=== PATIENT | female | born 1970 | race Caucasian/White ===

== ENCOUNTER → 2017-01-25 | Outpatient (CLI) | payer OTHER ==
[~2017-01-25] VITALS: Ht 170.2 cm; Wt 89.8 kg
[~2017-01-25] MED LIST: IBUP200C PO; IMIT50TA PO; LIDOCAINE 2% INJ 100 MG/5 ML SDV (FOR ANES.) As Ordered ONE; NS 1,000 ML IV SCH; OMEP40CA2 PO; PROPOFOL 200 MG/20 ML VIAL As Ordered ONE; PROZ40CA PO
--- NOTE | 2017-01-25 10:37 | ROOR ---
Patient Name: Sruthi Pearson Procedure Date: 01/25/2017 10:21 AM Date of : 1970 Age: 46 Room: [facility] Gender: Female Note Status: Finalized Procedure: Upper GI endoscopy Indications: Dysphagia, Heartburn, Abnormal cine-esophagram (possible "tiny mm" zenkers) Providers: Abundio LOCKHART MD Referring MD: [facility] Seth Requesting Provider: Medicines: Monitored Anesthesia Care Complications: No immediate complications. Procedure: Pre-Anesthesia Assessment: - The heart rate, respiratory rate, oxygen saturations, blood pressure, adequacy of pulmonary ventilation, and response to care were monitored throughout the procedure. The Endoscope was introduced through the mouth, and advanced to the second part of duodenum. The upper GI endoscopy was accomplished without difficulty. The patient tolerated the procedure well. Findings: The proximal esophagus and examined esophagus were normal. No endoscopic abnormality was evident in the esophagus to explain the patient's complaint of dysphagia. It was decided, however, to proceed with dilation of the entire esophagus. The scope was withdrawn. Dilation was performed with a Burks dilator with no resistance at 54 Fr. Small Hiatal Hernia. The entire examined stomach was normal. The examined duodenum was normal. Impression: - Normal proximal esophagus there is no visual evidenze of a diverticulum. - No endoscopic esophageal abnormality to explain patient's dysphagia. Esophagus was dilated. (Dilated with 54 Burks dilator). - Small Hiatal Hernia. - Normal stomach. - Normal examined duodenum. - No specimens collected. Recommendation: - Continue present medications. - Observe patient's clinical course. Abundio Lockhart MD Abundio LOCKHART MD 01/25/2017 10:37:11 AM This report has been signed electronically. Number of Addenda: 0 Note Initiated On: 01/25/2017 10:21 AM Estimated Blood Loss: Estimated blood loss: none.
[2017-01-25 10:55] VITALS: BP 156/117
== END | disposition home or self-care (01) ==
LOC: M OPP 08:35
PROVIDERS: ATTEND Internal Medicine Gastroenterology
DX: R93.3 Abnormal findings on diagnostic imaging of other parts of digestive tract (principal); K44.9 Diaphragmatic hernia without obstruction or gangrene; R13.10 Dysphagia, unspecified; R12 Heartburn; I10 Essential (primary) hypertension; F41.9 Anxiety disorder, unspecified; F33.9 Major depressive disorder, recurrent, unspecified; G43.909 Migraine, unspecified, not intractable, without status migrainosus; Z79.899 Other long term (current) drug therapy